=== PATIENT | female | born 1980 ===

== ENCOUNTER 2021-04-01 10:01 | Outpatient (CLI) | payer OTHER | END 2021-04-01 11:23 | disposition home or self-care (01) | LOC: PRENATAL 10:01 | PROVIDERS: ATTEND Obstetrics & Gynecology Maternal & Fetal Medicine | DX: O35.0XX1 Maternal care for (suspected) central nervous system malformation in fetus, fetus 1 (principal); O35.3XX1 Maternal care for (suspected) damage to fetus from viral disease in mother, fetus 1; O09.512 Supervision of elderly primigravida, second trimester; O98.512 Other viral diseases complicating pregnancy, second trimester; O28.1 Abnormal biochemical finding on antenatal screening of mother; Z36.89 Encounter for other specified antenatal screening; Z3A.21 21 weeks gestation of pregnancy ==

== ENCOUNTER 2021-07-10 10:32 | Outpatient (CLI) | payer OTHER | END 2021-07-10 11:13 | disposition home or self-care (01) | LOC: PRENATAL 10:32 | PROVIDERS: ATTEND Obstetrics & Gynecology Maternal & Fetal Medicine | DX: O26.849 Uterine size-date discrepancy, unspecified trimester (principal); O35.0XX0 Maternal care for (suspected) central nervous system malformation in fetus, not applicable or unspecified; O36.8199 Decreased fetal movements, unspecified trimester, other fetus ==

== ENCOUNTER 2021-07-30 13:30 | Inpatient (IN) | payer OTHER ==
[~2021-07-30] VITALS: Ht 162.6 cm; Wt 64.9 kg
[2021-08-03] MEDS ORDERED: NAPR500T14 PO (12:46)
== END 2021-08-04 14:05 | disposition home or self-care (01) | DRG 807 ==
LOC: LDR 07-31 14:57 → OB/GYN 07-31 14:57
PROVIDERS: ADMIT Obstetrics & Gynecology; ATTEND Obstetrics & Gynecology
PROC: 10E0XZZ Delivery of Products of Conception, External Approach (ICD-10-PCS; principal; 2021-07-31)
PROC: 0KQM0ZZ Repair Perineum Muscle, Open Approach (ICD-10-PCS; 2021-07-31)
PROC: 0UQMXZZ Repair Vulva, External Approach (ICD-10-PCS; 2021-07-31)
PROC: 4A1HXCZ Monitoring of Products of Conception, Cardiac Rate, External Approach (ICD-10-PCS; 2021-07-31)
DX: O70.1 Second degree perineal laceration during delivery (principal); O70.0 First degree perineal laceration during delivery; Z37.0 Single live birth; Z3A.39 39 weeks gestation of pregnancy; Z20.822 Contact with and (suspected) exposure to COVID-19